=== PATIENT | male | born 1950 | race African-American/Black ===

== ENCOUNTER 2024-08-06 17:21 | Inpatient (IN) | payer MEDICARE, OTHER ==
[2024-08-06 18:56] LABS: HEMATOCRIT 25.8 % (35.4-49); HEMOGLOBIN 8.3 GM/dL (11.7-16.9); MCH 27.3 pg (25.7-33.7); MCHC 32.1 g/dl (32.0-35.9); MEAN PLT VOLUME 8.9 fl (7.5-11.1); PLATELET COUNT 442 10^3/uL (134-434); RBC 3.04 M/mm3 (4.00-5.60); RDW 19.1 % (11.9-15.9); VENOUS O2 SATURATION 42.5 % (70-80); VENOUS PCO2 43.3 mmHg (38-52); VENOUS PH 7.321 (7.310-7.410)
[2024-08-06] MEDS: SODIUM CHLORIDE 0.9% 500 ML INFUS.BAG IV ONE (19:00)
[2024-08-06 19:04] LABS: EPI CELLS 25 /uL (0-25.1); HYALINE CASTS 2 /uL (0-3.1); PH,URINE 5.5 (5.0-8.0); URINE APPEARANCE CLOUDY; URINE BACTERIA 52 /uL (0-1359); URINE BILIRUBIN NEGATIVE (NEGATIVE); URINE COLOR YELLOW; URINE GLUCOSE (UA) NEGATIVE (NEGATIVE); URINE KETONE NEGATIVE (NEGATIVE); URINE LEUK ESTERASE 3+ (NEGATIVE); URINE NITRITE NEGATIVE (NEGATIVE); URINE PROTEIN 1+ (NEGATIVE); URINE RBC 354 /uL (0-23.9); URINE UROBILINOGEN 0.2 mg/dL (0.2-1.0); URINE WBC 415 /uL (0-25.8)
[2024-08-06 19:05] LABS: WHITE BLOOD COUNT 47.5 K/mm3 (4.0-10.0)
[2024-08-06 19:15] LABS: CHLORIDE 95 mmol/L (98-107); SODIUM 124 mmol/L (136-145)
[2024-08-06 19:21] LABS: CALCIUM 12.3 mg/dL (8.5-10.1)
[2024-08-06 19:22] LABS: ALBUMIN 1.4 g/dl (3.4-5.0); ANION GAP 8 mmol/L (4-13); BLOOD UREA NITROGEN 82.4 mg/dL (7-18); CO2 21 mmol/L (21-32); GLUCOSE,RANDOM 66 mg/dL (74-106); POTASSIUM 6.3 mmol/L (3.5-5.1)
[2024-08-06 19:25] LABS: CREATININE 1.7 mg/dL (0.55-1.3); SGOT/AST 147 U/L (15-37); SGPT/ALT 58 U/L (13-61)
[2024-08-06 19:27] LABS: BILIRUBIN,TOTAL 1.2 mg/dL (0.2-1)
[2024-08-06 19:28] LABS: ALK PHOS 597 U/L (45-117)
[2024-08-06] MEDS ORDERED: VANCOMYCIN HCL 1,500 MG in DEXTROSE 5%-WATER - 500 ML IVPB ONE (19:40)
[2024-08-06] MEDS ORDERED: PIPERACILLIN/TAZOB 2.25 GM 2.25 GM/50 ML BAG IVPB ONE (19:43)
[2024-08-06 20:06] LABS: ANISOCYTOSIS 2+; MACROCYTOSIS 2+; TARGET CELLS 1+
[2024-08-06] MEDS: PIPERACILLIN/TAZOB 2.25 GM 2.25 GM in DEXTROSE 5%-WATER - 50 ML IVPB SCH ×2 (20:11→20:58)
[2024-08-06] MEDS: SODIUM CHLORIDE 1,000 ML IV STA (20:26)
[2024-08-06] MEDS: PIPERACILLIN/TAZOB 2.25 GM 2.25 GM/50 ML BAG IVPB SCH (20:40)
[2024-08-06 20:52] LABS: POTASSIUM 4.6 mmol/L (3.5-5.1)
[2024-08-06 20:53] LABS: CALCIUM 11.5 mg/dL (8.5-10.1)
[2024-08-06 20:54] LABS: BLOOD UREA NITROGEN 72.6 mg/dL (7-18)
[2024-08-06 20:57] LABS: CREATININE 1.4 mg/dL (0.55-1.3)
[2024-08-06] MEDS: VANCOMYCIN PREMIX 1.5 GM 1,500 MG/300 ML BAG IVPB ONE (20:57)
[2024-08-07] MEDS: SODIUM CHLORIDE 0.9% 500 ML INFUS.BAG IV ONE (00:28)
[2024-08-07] MEDS ORDERED: MIDODRINE HCL 5 MG TABLET ONE ×2 (00:58→00:59)
[2024-08-07] MEDS: MIDODRINE HCL 5 MG TABLET GT SCH ×3 (01:15→15:31)
[2024-08-07] MEDS: SODIUM CHLORIDE 1,000 ML IV STA (01:40)
[2024-08-07] MEDS: ACETAMINOPHEN 1000 MG/100 ML BAG IVPB SCH ×2 (02:47→15:19)
[2024-08-07] MEDS ORDERED: SCOPOLAMINE HYDROBROMIDE 1 PATCH PATCH.TD72 ONE ×2 (02:58→03:38)
[2024-08-07] MEDS ORDERED: NOREPINEPHRINE BITARTRATE 4 MG/4 ML ML IV ONE (03:05)
[2024-08-07] MEDS: NOREPINEPHRINE BITARTRATE 4,000 MCG in DEXTROSE 5%-WATER - 496 ML IV SCH (03:15)
[2024-08-07] MEDS ORDERED: PIPERACILLIN/TAZOB 2.25 GM 2.25 GM/50 ML BAG IVPB ONE (03:38)
[2024-08-07] MEDS: SCOPOLAMINE HYDROBROMIDE 1 PATCH PATCH.TD72 TD SCH (03:41)
[2024-08-07] MEDS: HYDROCORTISONE SOD SUCCINATE 100 MG/2 ML VIAL IVPB SCH ×2 (03:41→15:31)
[2024-08-07] MEDS ORDERED: DEXTROSE 50%-WATER 25 GM/50 ML DISP.SYRIN ONE (04:01)
[2024-08-07] MEDS: DEXTROSE 50%-WATER - 25 GM/50 ML VIAL IVPUSH ONE (04:05)
[2024-08-07 07:26] LABS: HEMATOCRIT 22.2 % (35.4-49); MCH 26.8 pg (25.7-33.7); MCHC 31.6 g/dl (32.0-35.9); MEAN CELL VOLUME 84.9 fl (80-96); MEAN PLT VOLUME 7.9 fl (7.5-11.1); PLATELET COUNT 341 10^3/uL (134-434); RBC 2.61 M/mm3 (4.00-5.60); RDW 18.7 % (11.9-15.9)
[2024-08-07 07:51] LABS: POTASSIUM 4.8 mmol/L (3.5-5.1); WHITE BLOOD COUNT 55.6 K/mm3 (4.0-10.0)
[2024-08-07 07:53] LABS: CALCIUM 10.9 mg/dL (8.5-10.1)
[2024-08-07 07:54] LABS: ALBUMIN 1.3 g/dl (3.4-5.0); MAGNESIUM 1.9 mg/dL (1.8-2.4)
[2024-08-07 07:57] LABS: CREATININE 1.5 mg/dL (0.55-1.3); PHOSPHOROUS 3.9 mg/dL (2.5-4.9)
[2024-08-07 07:58] LABS: BILIRUBIN,TOTAL 1.9 mg/dL (0.2-1); TOT PROT 6.7 g/dl (6.4-8.2)
[2024-08-07 09:15] LABS: BILIRUBIN,DIRECT 1.7 mg/dL (0.0-0.2)
[2024-08-07] MEDS: LACTATED RINGERS SOLUTION 1,000 ML/1,000 ML INFUS.BAG IV SCH (09:26)
[2024-08-07] MEDS: FERROUS SO4 300 MG/5 ML ORAL SOLN UNIT DOSE CUPS GT SCH ×2 (09:27→10:33)
[2024-08-07] MEDS ORDERED: NOREPINEPHRINE BITARTRATE 4,000 MCG in DEXTROSE 5%-WATER - 496 ML IV SCH (09:34)
[2024-08-07] MEDS ORDERED: MUPIROCIN 2% TOPICAL OINTMENT FOR DECOLONIZATION NS SCH (10:00)
[2024-08-07] MEDS ORDERED: ENOXAPARIN NA (PORCINE) 30 MG/0.3 ML DISP.SYRIN SQ SCH (10:00)
[2024-08-07] MEDS: ENOXAPARIN NA (PORCINE) 30 MG/0.3 ML DISP.SYRIN SQ SCH (11:36)
[2024-08-07] MEDS: MUPIROCIN 2% TOPICAL OINTMENT FOR DECOLONIZATION NS SCH (12:25)
[2024-08-07] MEDS: PIPERACILLIN/TAZOB 2.25 GM 2.25 GM/50 ML BAG IVPB SCH ×2 (12:26→16:55)
[2024-08-07] MEDS: VANCOMYCIN/WATER FOR INJ (PEG) 1,000 MG/200 ML BAG IVPB ONE (13:21)
[2024-08-07] MEDS: VANCOMYCIN 1 GRAM (PRE-DOCKED) 1,000 MG/250 ML BAG IVPB ONE (13:25)
[2024-08-07] MEDS: NOREPINEPHRINE BITARTRATE/D5W 8 MG/250 ML BAG IVPB SCH (15:40)
[2024-08-07] MEDS: CHLORHEXIDINE GLUCONATE 4% CLEANSER FOR DECOLONIZATION TP SCH (21:39)
[2024-08-07] MEDS ORDERED: VANCOMYCIN 1 GRAM (PRE-DOCKED) 1,000 MG/250 ML BAG IVPB SCH (22:00)
[2024-08-07] MEDS ORDERED: CHLORHEXIDINE GLUCONATE 4% CLEANSER FOR DECOLONIZATION TP SCH ×2 (22:00)
[2024-08-08] MEDS: PIPERACILLIN/TAZOB 3.375 GM 50 ML IVPB SCH (01:36)
[2024-08-08 08:26] LABS: HEMATOCRIT 22.1 % (35.4-49); MCH 27.2 pg (25.7-33.7); MCHC 31.5 g/dl (32.0-35.9); MEAN CELL VOLUME 86.2 fl (80-96); MEAN PLT VOLUME 8.2 fl (7.5-11.1); PLATELET COUNT 360 10^3/uL (134-434); RBC 2.57 M/mm3 (4.00-5.60); RDW 18.6 % (11.9-15.9)
[2024-08-08 08:34] LABS: POTASSIUM 4.5 mmol/L (3.5-5.1)
[2024-08-08 08:47] LABS: ALBUMIN 1.2 g/dl (3.4-5.0)
[2024-08-08 08:48] LABS: BLOOD UREA NITROGEN 69.8 mg/dL (7-18); MAGNESIUM 1.9 mg/dL (1.8-2.4)
[2024-08-08 08:50] LABS: CREATININE 1.4 mg/dL (0.55-1.3)
[2024-08-08 08:51] LABS: BILIRUBIN,TOTAL 1.2 mg/dL (0.2-1); PHOSPHOROUS 4.9 mg/dL (2.5-4.9); TOT PROT 6.6 g/dl (6.4-8.2)
[2024-08-08 08:56] LABS: CALCIUM 11.5 mg/dL (8.5-10.1)
[2024-08-08 09:19] LABS: WHITE BLOOD COUNT 54.9 K/mm3 (4.0-10.0)
[2024-08-08 10:16] LABS: ANISOCYTOSIS 1+; MACROCYTOSIS 0
[2024-08-09 08:10] LABS: HEMATOCRIT 22.5 % (35.4-49); HEMOGLOBIN 7.2 GM/dL (11.7-16.9); MCH 27.4 pg (25.7-33.7); MCHC 31.9 g/dl (32.0-35.9); MEAN CELL VOLUME 85.8 fl (80-96); MEAN PLT VOLUME 8.2 fl (7.5-11.1); PLATELET COUNT 346 10^3/uL (134-434); RBC 2.62 M/mm3 (4.00-5.60); RDW 18.7 % (11.9-15.9)
[2024-08-09 08:27] LABS: WHITE BLOOD COUNT 38.9 K/mm3 (4.0-10.0)
[2024-08-09 08:30] LABS: POTASSIUM 3.3 mmol/L (3.5-5.1)
[2024-08-09 08:35] LABS: ALBUMIN 1.3 g/dl (3.4-5.0); BLOOD UREA NITROGEN 74.7 mg/dL (7-18); MAGNESIUM 1.8 mg/dL (1.8-2.4)
[2024-08-09 08:39] LABS: CREATININE 1.4 mg/dL (0.55-1.3)
[2024-08-09 08:40] LABS: BILIRUBIN,TOTAL 0.9 mg/dL (0.2-1); TOT PROT 6.4 g/dl (6.4-8.2)
[2024-08-09 08:56] LABS: ANISOCYTOSIS 1+; MACROCYTOSIS 1+; TARGET CELLS 1+
[2024-08-09] MEDS: POTASSIUM CHLORIDE ORAL LIQUID 20 MEQ/15 ML PO SCH (10:45)
[2024-08-09] MEDS: LACTATED RINGERS SOLUTION 1,000 ML/1,000 ML INFUS.BAG IV SCH (15:35)
[2024-08-09] MEDS: morphine SULFATE 4 MG/ML VIAL IVPUSH PRN (15:38)
[2024-08-10] MEDS: SCOPOLAMINE HYDROBROMIDE 1 PATCH PATCH.TD72 TD SCH (01:06)
[2024-08-10 08:22] LABS: HEMATOCRIT 21.9 % (35.4-49); HEMOGLOBIN 7.2 GM/dL (11.7-16.9); MCH 28.1 pg (25.7-33.7); MCHC 32.7 g/dl (32.0-35.9); MEAN CELL VOLUME 85.9 fl (80-96); MEAN PLT VOLUME 7.7 fl (7.5-11.1); PLATELET COUNT 293 10^3/uL (134-434); RBC 2.55 M/mm3 (4.00-5.60); RDW 18.9 % (11.9-15.9)
[2024-08-10 08:29] LABS: WHITE BLOOD COUNT 30.2 K/mm3 (4.0-10.0)
[2024-08-10] MEDS: VANCOMYCIN/WATER FOR INJ (PEG) 1,000 MG/200 ML BAG IVPB SCH (08:49)
[2024-08-10 09:00] LABS: POTASSIUM 3.7 mmol/L (3.5-5.1)
[2024-08-10 09:03] LABS: CALCIUM 10.5 mg/dL (8.5-10.1)
[2024-08-10 09:04] LABS: ALBUMIN 1.3 g/dl (3.4-5.0); BLOOD UREA NITROGEN 81.9 mg/dL (7-18); MAGNESIUM 1.7 mg/dL (1.8-2.4)
[2024-08-10 09:07] LABS: CREATININE 1.5 mg/dL (0.55-1.3)
[2024-08-10 09:08] LABS: BILIRUBIN,TOTAL 0.7 mg/dL (0.2-1); TOT PROT 6.4 g/dl (6.4-8.2)
[2024-08-10 09:19] LABS: ANISOCYTOSIS 1+; MACROCYTOSIS 1+
[2024-08-10] MEDS: VANCOMYCIN 1,000 MG in DEXTROSE 5%-WATER - 250 ML IVPB SCH ×2 (18:00)
[2024-08-10] MEDS: MAGNESIUM 2GM/50ML STERILE WATER IVPB IVPB ONE (20:33)
[2024-08-11 06:53] LABS: HEMATOCRIT 24.2 % (35.4-49); HEMOGLOBIN 7.4 GM/dL (11.7-16.9); MCH 26.8 pg (25.7-33.7); MCHC 30.8 g/dl (32.0-35.9); MEAN CELL VOLUME 87.1 fl (80-96); MEAN PLT VOLUME 8.2 fl (7.5-11.1); PLATELET COUNT 261 10^3/uL (134-434); RBC 2.78 M/mm3 (4.00-5.60); RDW 19.5 % (11.9-15.9)
[2024-08-11 07:01] LABS: INR 1.44 (0.83-1.09); PROTHROMBIN TIME (PATIENT) 16.4 SEC (9.7-13.0)
[2024-08-11 07:05] LABS: POTASSIUM 3.4 mmol/L (3.5-5.1)
[2024-08-11 07:09] LABS: ALBUMIN 1.4 g/dl (3.4-5.0); CALCIUM 11.1 mg/dL (8.5-10.1)
[2024-08-11 07:12] LABS: CREATININE 1.5 mg/dL (0.55-1.3); WHITE BLOOD COUNT 33.9 K/mm3 (4.0-10.0)
[2024-08-11 07:13] LABS: PHOSPHOROUS 3.7 mg/dL (2.5-4.9)
[2024-08-11 07:14] LABS: BILIRUBIN,TOTAL 0.7 mg/dL (0.2-1); TOT PROT 6.3 g/dl (6.4-8.2)
[2024-08-11 08:49] LABS: ANISOCYTOSIS 1+; MACROCYTOSIS 1+
[2024-08-11] MEDS: KCL 10 MEQ IVPB 10 MEQ/100 ML INFUS.BAG IVPB SCH (09:37)
[2024-08-11] MEDS: VANCOMYCIN ORAL SOLUTION 125 MG/2.5 ML PO SCH (13:31)
[2024-08-11 22:25] LABS: HEMATOCRIT 21.3 % (35.4-49); MCH 26.4 pg (25.7-33.7); MCHC 30.7 g/dl (32.0-35.9); MEAN PLT VOLUME 7.8 fl (7.5-11.1); PLATELET COUNT 221 10^3/uL (134-434); RBC 2.47 M/mm3 (4.00-5.60); RDW 19.7 % (11.9-15.9)
[2024-08-11 22:27] LABS: ADD RBC MORPHOLOGY YES
[2024-08-11 22:30] LABS: HEMOGLOBIN 6.5 GM/dL (11.7-16.9); WHITE BLOOD COUNT 38.4 K/mm3 (4.0-10.0)
[2024-08-11 22:34] LABS: INR 1.53 (0.83-1.09); PROTHROMBIN TIME (PATIENT) 17.1 SEC (9.7-13.0)
[2024-08-11 22:47] LABS: CALCIUM 10.3 mg/dL (8.5-10.1); POTASSIUM 3.3 mmol/L (3.5-5.1)
[2024-08-11 22:49] LABS: BLOOD UREA NITROGEN 81.7 mg/dL (7-18)
[2024-08-11 22:51] LABS: CREATININE 1.4 mg/dL (0.55-1.3); PHOSPHOROUS 3.8 mg/dL (2.5-4.9)
[2024-08-11 23:45] LABS: MACROCYTOSIS 1+; TARGET CELLS 1+
[2024-08-11 23:48] LABS: ANISOCYTOSIS 1+
[2024-08-12] MEDS: KCL 10 MEQ IVPB 10 MEQ/100 ML INFUS.BAG IVPB SCH (01:01)
[2024-08-12] MEDS: AMIODARONE IN DEXTROSE,ISO-OSM 150 MG/100 ML BAG IVPB ONE (05:51)
[2024-08-12 06:13] LABS: ARTERIAL BLD GAS O2 SATURATION 91.1 % (95-98); ARTERIAL BLOOD GAS BASE EXCESS -5.7 mmol/L (-2-2); ARTERIAL BLOOD GAS PO2 61.3 mmHg (80-100); ARTERIAL BLOOD GAS pH 7.368 (7.350-7.450)
[2024-08-12 06:17] LABS: ALLENS TEST POSITIVE; PT'S TEMP 99.2; VENT MODE A/C; VENT RATE 18
[2024-08-12 06:27] LABS: HEMATOCRIT 24.7 % (35.4-49); HEMOGLOBIN 7.8 GM/dL (11.7-16.9); MCH 27.8 pg (25.7-33.7); MCHC 31.6 g/dl (32.0-35.9); MEAN PLT VOLUME 8.3 fl (7.5-11.1); PLATELET COUNT 265 10^3/uL (134-434); RBC 2.81 M/mm3 (4.00-5.60)
[2024-08-12 06:38] LABS: POTASSIUM 3.6 mmol/L (3.5-5.1)
[2024-08-12 06:43] LABS: ALBUMIN 1.3 g/dl (3.4-5.0); CALCIUM 9.8 mg/dL (8.5-10.1)
[2024-08-12 06:44] LABS: BLOOD UREA NITROGEN 77.3 mg/dL (7-18); MAGNESIUM 1.9 mg/dL (1.8-2.4)
[2024-08-12 06:46] LABS: CREATININE 1.5 mg/dL (0.55-1.3)
[2024-08-12 06:48] LABS: BILIRUBIN,TOTAL 1.1 mg/dL (0.2-1); TOT PROT 5.8 g/dl (6.4-8.2)
[2024-08-12 06:54] LABS: WHITE BLOOD COUNT 53.4 K/mm3 (4.0-10.0)
[2024-08-12 09:08] LABS: ANISOCYTOSIS 0; HELMET CELLS 0; HOWELL-JOLLY BODIES 0; MACROCYTOSIS 0; OVALOCYTE 0; ROULEAU 0; SICKELED CELLS 0; TARGET CELLS 0; TEAR DROP CELLS 0; TOXIC GRANULATION 0
[2024-08-12] MEDS: FUROSEMIDE 40 MG/4 ML INJECTABLE VIAL IVPUSH ONE (11:38)
[2024-08-12] MEDS ORDERED: AMIODARONE IN DEXTROSE,ISO-OSM 360 MG/200 ML BAG ONE (11:43)
[2024-08-12] MEDS: MIDODRINE HCL 5 MG TABLET GT SCH (17:01)
[2024-08-13 06:42] LABS: HEMATOCRIT 24.7 % (35.4-49); MCH 27.9 pg (25.7-33.7); MCHC 32.2 g/dl (32.0-35.9); MEAN CELL VOLUME 86.7 fl (80-96); MEAN PLT VOLUME 8.6 fl (7.5-11.1); PLATELET COUNT 176 10^3/uL (134-434); RBC 2.86 M/mm3 (4.00-5.60); RDW 16.8 % (11.9-15.9)
[2024-08-13 06:47] LABS: POTASSIUM 3.1 mmol/L (3.5-5.1)
[2024-08-13 06:52] LABS: CALCIUM 9.6 mg/dL (8.5-10.1)
[2024-08-13 06:53] LABS: ALBUMIN 1.3 g/dl (3.4-5.0); BLOOD UREA NITROGEN 88.8 mg/dL (7-18); MAGNESIUM 1.9 mg/dL (1.8-2.4)
[2024-08-13 06:56] LABS: CREATININE 1.7 mg/dL (0.55-1.3); PHOSPHOROUS 4.1 mg/dL (2.5-4.9)
[2024-08-13 06:57] LABS: BILIRUBIN,TOTAL 0.6 mg/dL (0.2-1)
[2024-08-13 06:59] LABS: TOT PROT 5.4 g/dl (6.4-8.2)
[2024-08-13 07:12] LABS: WHITE BLOOD COUNT 50.1 K/mm3 (4.0-10.0)
[2024-08-13 08:37] LABS: ANISOCYTOSIS 0; MACROCYTOSIS 0
[2024-08-13] MEDS: POTASSIUM CHLORIDE TABS 20 MEQ TABLET.ER (FP) PO ONE (08:55)
[2024-08-13] MEDS: AMPICILLIN NA/SULBACTAM NA 3 GM in SODIUM CHLORIDE 100 ML IVPB SCH (09:31)
[2024-08-13] MEDS: POTASSIUM CHLORIDE ORAL LIQUID 20 MEQ/15 ML GT ONE (09:34)
[2024-08-13] MEDS: FUROSEMIDE 40 MG/4 ML INJECTABLE VIAL IVPUSH ONE (10:21)
[2024-08-13] MEDS: HYDROCORTISONE SOD SUCCINATE 100 MG/2 ML VIAL IVPB SCH (10:21)
[2024-08-13] MEDS: ACETAMINOPHEN 650 MG/20.3 ML ORAL SOLUTION (CUPS) PO PRN (23:42)
[2024-08-14 07:38] LABS: HEMOGLOBIN 9.5 GM/dL (11.7-16.9); MCHC 31.5 g/dl (32.0-35.9); MEAN CELL VOLUME 88.9 fl (80-96); MEAN PLT VOLUME 9.2 fl (7.5-11.1); PLATELET COUNT 182 10^3/uL (134-434); RBC 3.38 M/mm3 (4.00-5.60); RDW 17.6 % (11.9-15.9)
[2024-08-14] MEDS ORDERED: METOPROLOL TARTRATE 5 MG/5 ML VIAL IVPUSH ONE (07:47)
[2024-08-14 07:55] LABS: POTASSIUM 3.4 mmol/L (3.5-5.1)
[2024-08-14 07:57] LABS: CALCIUM 9.2 mg/dL (8.5-10.1)
[2024-08-14 07:58] LABS: ALBUMIN 1.4 g/dl (3.4-5.0); BLOOD UREA NITROGEN 82.9 mg/dL (7-18)
[2024-08-14 08:01] LABS: CREATININE 1.8 mg/dL (0.55-1.3); MAGNESIUM 1.7 mg/dL (1.8-2.4); PHOSPHOROUS 4.1 mg/dL (2.5-4.9)
[2024-08-14 08:02] LABS: BILIRUBIN,TOTAL 0.7 mg/dL (0.2-1); TOT PROT 6.1 g/dl (6.4-8.2)
[2024-08-14 08:14] LABS: WHITE BLOOD COUNT 67.3 K/mm3 (4.0-10.0)
[2024-08-14] MEDS: LACTATED RINGERS SOLUTION 1,000 ML/1,000 ML INFUS.BAG IV STA (08:25)
[2024-08-14 09:05] LABS: ANISOCYTOSIS 0; MACROCYTOSIS 0
[2024-08-14] MEDS: MAGNESIUM 2GM/50ML STERILE WATER IVPB IVPB ONE (09:38)
[2024-08-14] MEDS: POTASSIUM CHLORIDE ORAL LIQUID 20 MEQ/15 ML GT ONE (09:38)
[2024-08-14 09:41] LABS: ARTERIAL BLD GAS O2 SATURATION 92.8 % (95-98); ARTERIAL BLOOD GAS BASE EXCESS -10.4 mmol/L (-2-2); ARTERIAL BLOOD GAS PO2 76.7 mmHg (80-100); ARTERIAL BLOOD GAS pH 7.222 (7.350-7.450)
[2024-08-14 09:43] LABS: ALLENS TEST POSITIVE
[2024-08-14 09:44] LABS: VENT MODE AC; VENT RATE 18
[2024-08-14] MEDS: HYDROmorphone HCl 2 MG/ML VIAL IVPUSH ONE (10:18)
[2024-08-14] MEDS: MIDAZOLAM IN 0.9 % SOD.CHLORID 100 MG/100 ML PLAST..BAG IVPB SCH (11:30)
[2024-08-14] MEDS: LACTATED RINGERS SOLUTION 1000 ML INFUS.BAG IV ONE ×2 (16:42→21:20)
[2024-08-14] MEDS ORDERED: VANCOMYCIN 500 MG in DEXTROSE 5%-WATER - 100 ML IVPB SCH (21:00)
[2024-08-14] MEDS: VANCOMYCIN 500 MG VIAL (RESTRICTED TO ID ONLY) RC SCH (21:50)
[2024-08-14] MEDS: FIDAXOMICIN 200 MG TABLET PO SCH (21:51)
[2024-08-15 07:56] LABS: POTASSIUM 3.7 mmol/L (3.5-5.1)
[2024-08-15 08:02] LABS: CALCIUM 9.4 mg/dL (8.5-10.1)
[2024-08-15 08:03] LABS: ALBUMIN 1.3 g/dl (3.4-5.0); BLOOD UREA NITROGEN 84.3 mg/dL (7-18); MAGNESIUM 1.9 mg/dL (1.8-2.4)
[2024-08-15 08:06] LABS: CREATININE 1.8 mg/dL (0.55-1.3); HEMATOCRIT 27.9 % (35.4-49); HEMOGLOBIN 8.9 GM/dL (11.7-16.9); MCH 28.7 pg (25.7-33.7); MCHC 31.9 g/dl (32.0-35.9); MEAN CELL VOLUME 90.2 fl (80-96); MEAN PLT VOLUME 9.5 fl (7.5-11.1); PHOSPHOROUS 4.4 mg/dL (2.5-4.9); PLATELET COUNT 163 10^3/uL (134-434); RBC 3.09 M/mm3 (4.00-5.60); RDW 18.2 % (11.9-15.9)
[2024-08-15 08:08] LABS: BILIRUBIN,TOTAL 0.7 mg/dL (0.2-1); TOT PROT 5.8 g/dl (6.4-8.2)
[2024-08-15 08:34] LABS: WHITE BLOOD COUNT 58.4 K/mm3 (4.0-10.0)
[2024-08-15 09:52] LABS: ANISOCYTOSIS 0; MACROCYTOSIS 0; TARGET CELLS 2+
[2024-08-15] MEDS: SODIUM CHLORIDE 0.45% 1,000 ML IV SCH (10:30)
[2024-08-15] MEDS ORDERED: AMPICILLIN NA/SULBACTAM NA 3 GM VIAL ONE (16:25)
[2024-08-15 19:01] LABS: HEMATOCRIT 25.3 % (35.4-49); MCH 28.4 pg (25.7-33.7); MCHC 31.6 g/dl (32.0-35.9); MEAN PLT VOLUME 9.5 fl (7.5-11.1); PLATELET COUNT 151 10^3/uL (134-434); RBC 2.81 M/mm3 (4.00-5.60); RDW 18.4 % (11.9-15.9)
[2024-08-15] MEDS: PANTOPRAZOLE SODIUM 40 MG VIAL IVPUSH SCH (21:07)
[2024-08-15] MEDS: ACETAMINOPHEN 1000 MG/100 ML BAG IVPB PRN (21:35)
[2024-08-16] MEDS: LACTATED RINGERS SOLUTION 1000 ML INFUS.BAG IV ONE
[2024-08-16 06:59] LABS: HEMATOCRIT 21.9 % (35.4-49); MCH 28.6 pg (25.7-33.7); MCHC 31.5 g/dl (32.0-35.9); MEAN CELL VOLUME 90.7 fl (80-96); MEAN PLT VOLUME 9.8 fl (7.5-11.1); PLATELET COUNT 154 10^3/uL (134-434); RBC 2.42 M/mm3 (4.00-5.60); RDW 18.7 % (11.9-15.9)
[2024-08-16 07:15] LABS: POTASSIUM 3.3 mmol/L (3.5-5.1)
[2024-08-16 07:20] LABS: HEMOGLOBIN 6.9 GM/dL (11.7-16.9); WHITE BLOOD COUNT 54.3 K/mm3 (4.0-10.0)
[2024-08-16 07:21] LABS: ALBUMIN 1.1 g/dl (3.4-5.0)
[2024-08-16 07:27] LABS: CALCIUM 8.8 mg/dL (8.5-10.1)
[2024-08-16 07:28] LABS: BLOOD UREA NITROGEN 89.6 mg/dL (7-18)
[2024-08-16 07:30] LABS: MAGNESIUM 1.7 mg/dL (1.8-2.4)
[2024-08-16 07:31] LABS: PHOSPHOROUS 3.8 mg/dL (2.5-4.9)
[2024-08-16 07:32] LABS: BILIRUBIN,TOTAL 0.8 mg/dL (0.2-1)
[2024-08-16 07:33] LABS: CREATININE 1.6 mg/dL (0.55-1.3); TOT PROT 4.8 g/dl (6.4-8.2)
[2024-08-16] MEDS: DEXTROSE 5%-WATER - 1,000 ML IV SCH ×2 (08:21→10:23)
[2024-08-16] MEDS: KCL 10 MEQ IVPB 10 MEQ/100 ML INFUS.BAG IVPB SCH (08:22)
[2024-08-16 09:13] LABS: ANISOCYTOSIS 1+; MACROCYTOSIS 0; TARGET CELLS 2+
[2024-08-16] MEDS: POTASSIUM CHLORIDE 20 MEQ in DEXTROSE 5%-WATER - 1,000 ML IV SCH (11:52)
[2024-08-16 23:32] LABS: HEMATOCRIT 27.4 % (35.4-49); HEMOGLOBIN 8.8 GM/dL (11.7-16.9); MCH 28.9 pg (25.7-33.7); MCHC 32.2 g/dl (32.0-35.9); MEAN CELL VOLUME 89.6 fl (80-96); MEAN PLT VOLUME 9.4 fl (7.5-11.1); PLATELET COUNT 144 10^3/uL (134-434); RBC 3.06 M/mm3 (4.00-5.60); RDW 17.3 % (11.9-15.9)
[2024-08-16 23:38] LABS: WHITE BLOOD COUNT 52.5 K/mm3 (4.0-10.0)
[2024-08-16 23:46] LABS: POTASSIUM 3.1 mmol/L (3.5-5.1)
[2024-08-16 23:48] LABS: CALCIUM 8.7 mg/dL (8.5-10.1)
[2024-08-16 23:49] LABS: ALBUMIN 1.1 g/dl (3.4-5.0); BLOOD UREA NITROGEN 98.2 mg/dL (7-18); MAGNESIUM 1.6 mg/dL (1.8-2.4)
[2024-08-16 23:52] LABS: CREATININE 1.9 mg/dL (0.55-1.3); PHOSPHOROUS 3.7 mg/dL (2.5-4.9)
[2024-08-16 23:53] LABS: BILIRUBIN,TOTAL 0.8 mg/dL (0.2-1)
[2024-08-16 23:54] LABS: TOT PROT 4.8 g/dl (6.4-8.2)
[2024-08-17 00:01] LABS: ANISOCYTOSIS 1+; MACROCYTOSIS 1+
[2024-08-17] MEDS: POTASSIUM CHLORIDE ORAL LIQUID 20 MEQ/15 ML PEG ONE (00:44)
[2024-08-17] MEDS: MAGNESIUM SULFATE IN WATER 2 GM/50 ML IVPB IVPB ONE (00:44)
[2024-08-17] MEDS: ACETAMINOPHEN 1000 MG/100 ML BAG IVPB PRN (06:45)
[2024-08-17 07:31] LABS: POTASSIUM 3.8 mmol/L (3.5-5.1)
[2024-08-17 07:33] LABS: HEMATOCRIT 28.7 % (35.4-49); HEMOGLOBIN 9.2 GM/dL (11.7-16.9); MCH 29.5 pg (25.7-33.7); MCHC 32.1 g/dl (32.0-35.9); MEAN CELL VOLUME 91.9 fl (80-96); MEAN PLT VOLUME 9.8 fl (7.5-11.1); PLATELET COUNT 132 10^3/uL (134-434); RBC 3.13 M/mm3 (4.00-5.60); RDW 16.4 % (11.9-15.9)
[2024-08-17 07:36] LABS: CALCIUM 8.7 mg/dL (8.5-10.1)
[2024-08-17 07:37] LABS: ALBUMIN 1.1 g/dl (3.4-5.0)
[2024-08-17 07:38] LABS: BLOOD UREA NITROGEN 101.5 mg/dL (7-18)
[2024-08-17 07:39] LABS: WHITE BLOOD COUNT 51.5 K/mm3 (4.0-10.0)
[2024-08-17 07:40] LABS: CREATININE 2.1 mg/dL (0.55-1.3)
[2024-08-17 07:41] LABS: BILIRUBIN,TOTAL 0.8 mg/dL (0.2-1); TOT PROT 4.6 g/dl (6.4-8.2)
[2024-08-17 10:09] LABS: ANISOCYTOSIS 2+; MACROCYTOSIS 0
[2024-08-17 15:19] VITALS: BMI 25.2
[2024-08-17] MEDS: FIDAXOMICIN 200 MG TABLET PO SCH (15:29)
[2024-08-17] MEDS: DEXTROSE 5%-WATER - 1,000 ML IV SCH (16:14)
[2024-08-17] MEDS: POTASSIUM CHLORIDE 20 MEQ in AMINO ACIDS 4.25%/D5W 1,000 ML IV SCH (17:58)
[2024-08-17] MEDS: AMINO ACIDS 4.25%/D5W 1,000 ML IV SCH (18:44)
[2024-08-18 07:48] LABS: POTASSIUM 4.5 mmol/L (3.5-5.1)
[2024-08-18 07:50] LABS: ALBUMIN 1.1 g/dl (3.4-5.0)
[2024-08-18 07:51] LABS: BLOOD UREA NITROGEN 100.2 mg/dL (7-18)
[2024-08-18 07:53] LABS: CREATININE 2.4 mg/dL (0.55-1.3)
[2024-08-18 07:54] LABS: PHOSPHOROUS 3.5 mg/dL (2.5-4.9)
[2024-08-18 07:55] LABS: BILIRUBIN,TOTAL 0.9 mg/dL (0.2-1); TOT PROT 4.9 g/dl (6.4-8.2)
[2024-08-18 11:11] LABS: HEMOGLOBIN 9.1 GM/dL (11.7-16.9); MCH 29.4 pg (25.7-33.7); MCHC 32.6 g/dl (32.0-35.9); MEAN CELL VOLUME 90.2 fl (80-96); MEAN PLT VOLUME 9.9 fl (7.5-11.1); PLATELET COUNT 105 10^3/uL (134-434); RBC 3.11 M/mm3 (4.00-5.60); RDW 18.4 % (11.9-15.9)
[2024-08-18 11:14] LABS: WHITE BLOOD COUNT 55.3 K/mm3 (4.0-10.0)
[2024-08-18 12:51] LABS: ANISOCYTOSIS 1+; MACROCYTOSIS 1+; TARGET CELLS 1+
[2024-08-18] MEDS: VANCOMYCIN 250 MG/5 ML ORAL SOLUTION (RESTRICTED TO ID ONLY) PEG SCH (18:30)
[2024-08-18 21:59] LABS: HEMATOCRIT 29.3 % (35.4-49); HEMOGLOBIN 9.2 GM/dL (11.7-16.9); MCH 29.4 pg (25.7-33.7); MCHC 31.4 g/dl (32.0-35.9); MEAN CELL VOLUME 93.7 fl (80-96); MEAN PLT VOLUME 10.2 fl (7.5-11.1); PLATELET COUNT 106 10^3/uL (134-434); RBC 3.13 M/mm3 (4.00-5.60); RDW 18.7 % (11.9-15.9)
[2024-08-18 22:06] LABS: WHITE BLOOD COUNT 57.4 K/mm3 (4.0-10.0)
[2024-08-18 23:03] LABS: ANISOCYTOSIS 2+; MACROCYTOSIS 1+; TARGET CELLS 1+
[2024-08-19 07:51] LABS: HEMATOCRIT 27.8 % (35.4-49); HEMOGLOBIN 8.8 GM/dL (11.7-16.9); MCH 29.4 pg (25.7-33.7); MCHC 31.8 g/dl (32.0-35.9); MEAN CELL VOLUME 92.4 fl (80-96); MEAN PLT VOLUME 10.6 fl (7.5-11.1); PLATELET COUNT 115 10^3/uL (134-434); RBC 3.01 M/mm3 (4.00-5.60); RDW 19.2 % (11.9-15.9)
[2024-08-19 07:56] LABS: INR 2.05 (0.83-1.09); PROTHROMBIN TIME (PATIENT) 23.1 SEC (9.7-13.0)
[2024-08-19 08:04] LABS: WHITE BLOOD COUNT 54.8 K/mm3 (4.0-10.0)
[2024-08-19 08:31] LABS: POTASSIUM 3.8 mmol/L (3.5-5.1)
[2024-08-19 08:37] LABS: CALCIUM 9.7 mg/dL (8.5-10.1)
[2024-08-19 08:38] LABS: MAGNESIUM 1.8 mg/dL (1.8-2.4)
[2024-08-19 08:41] LABS: CREATININE 2.9 mg/dL (0.55-1.3); PHOSPHOROUS 4.4 mg/dL (2.5-4.9)
[2024-08-19 08:42] LABS: BILIRUBIN,TOTAL 1.1 mg/dL (0.2-1); TOT PROT 4.8 g/dl (6.4-8.2)
[2024-08-19 09:51] LABS: ALBUMIN 1.1 g/dl (3.4-5.0)
[2024-08-19] MEDS: VANCOMYCIN 500 MG VIAL (RESTRICTED TO ID ONLY) NGT SCH (12:04)
[2024-08-19] MEDS: MORPHINE SULFATE/0.9% NACL/PF 100 MG/100 ML BAG IVPB SCH (13:35)
[2024-08-19] MEDS: LORazepam 2 MG/ML SDV VIAL IVPUSH PRN (17:06)
[2024-08-19 22:30] VITALS: TEMP 97.8
[2024-08-20 04:07] VITALS: BP 51/26; PULSE 79
[2024-08-20 08:34] VITALS: RESP 3
[2024-08-20] MEDS ORDERED: ACETAMINOPHEN 650 MG/20.3 ML ORAL SOLUTION (CUPS) PO PRN (08:42)
[2024-08-20] MEDS ORDERED: LORazepam 2 MG/ML SDV VIAL IVPUSH PRN (08:42)
[2024-08-20] MEDS ORDERED: MORPHINE SULFATE/0.9% NACL/PF 100 MG/100 ML BAG IVPB SCH (08:45)
[2024-08-22] MEDS ORDERED: SCOPOLAMINE HYDROBROMIDE 1 PATCH PATCH.TD72 TD SCH (10:00)
== END 2024-08-20 11:51 | disposition expired | DRG 853 ==
LOC: JER 17:21 → JERBED 20:35 → JICU 08-07 08:22 → J6S 08-19 21:32
PROVIDERS: ADMIT Internal Medicine Pulmonary Disease; ATTEND Internal Medicine
PROC: 5A1955Z Respiratory Ventilation, Greater than 96 Consecutive Hours (ICD-10-PCS; 2024-08-06)
PROC: 05HM33Z Insertion of Infusion Device into Right Internal Jugular Vein, Percutaneous Approach (ICD-10-PCS; principal; 2024-08-07)
PROC: B543ZZA Ultrasonography of Right Jugular Veins, Guidance (ICD-10-PCS; 2024-08-07)
PROC: 0KBN0ZZ Excision of Right Hip Muscle, Open Approach (ICD-10-PCS; 2024-08-11)
PROC: 30233N1 Transfusion of Nonautologous Red Blood Cells into Peripheral Vein, Percutaneous Approach (ICD-10-PCS; 2024-08-12)
DX: A41.89 Other specified sepsis (principal); L89.154 Pressure ulcer of sacral region, stage 4; R65.21 Severe sepsis with septic shock; E87.1 Hypo-osmolality and hyponatremia; J96.10 Chronic respiratory failure, unspecified whether with hypoxia or hypercapnia; A04.72 Enterocolitis due to Clostridium difficile, not specified as recurrent; I82.621 Acute embolism and thrombosis of deep veins of right upper extremity; C77.9 Secondary and unspecified malignant neoplasm of lymph node, unspecified; C78.7 Secondary malignant neoplasm of liver and intrahepatic bile duct; N17.9 Acute kidney failure, unspecified; D62 Acute posthemorrhagic anemia; K81.0 Acute cholecystitis; C21.0 Malignant neoplasm of anus, unspecified; E11.22 Type 2 diabetes mellitus with diabetic chronic kidney disease; R00.0 Tachycardia, unspecified; N18.9 Chronic kidney disease, unspecified; D72.829 Elevated white blood cell count, unspecified; E83.52 Hypercalcemia; R57.8 Other shock; E87.5 Hyperkalemia; M10.9 Gout, unspecified; K21.9 Gastro-esophageal reflux disease without esophagitis; J44.9 Chronic obstructive pulmonary disease, unspecified; Z85.528 Personal history of other malignant neoplasm of kidney; Z93.1 Gastrostomy status; Z90.5 Acquired absence of kidney
CPT/HCPCS: 0241U-QW; 36415; 36430; 36600; 71045-TC-FY; 74018-TC-FY; 74177-TC; 76705-TC; 76775-TC; 78226-TC; 80048; 80053; 81003; 82248; 82271; 82272; 82550; 82553; 82570; 82728; 82803; 82962; 83540; 83550; 83605; 83735; 84100; 84300; 84484; 85025; 85027; 85045; 85610; 85730; 86850; 86900; 86901; 86922; 87040; 87070; 87077; 87081; 87086; 87186; 87205; 87324; 87449; 87493; 87899; 88304-TC; 93005; 93010; 93971; 94002; 99285-25; A9537; G0480; J0131; J0282; P9058; Q9967